=== PATIENT | male | born 1990 | race African-American/Black ===

== ENCOUNTER 2017-01-18 22:10 | Emergency (ER) | payer SELFPAY ==
[2017-01-18] MEDS ORDERED: Ibuprofen 800 MG TAB ONE (22:43)
== END 2017-01-18 22:48 | disposition left against medical advice (07) ==
LOC: ERS 22:10
DX: Z53.21 Procedure and treatment not carried out due to patient leaving prior to being seen by health care provider (principal)

== ENCOUNTER 2017-02-08 02:08 | Emergency (ER) | payer BC, SELFPAY | END 2017-02-08 03:02 | disposition home or self-care (01) | LOC: SCSER 02:08 | DX: K04.4 Acute apical periodontitis of pulpal origin (principal); H66.91 Otitis media, unspecified, right ear; J06.9 Acute upper respiratory infection, unspecified | CPT/HCPCS: 99283 ==

== ENCOUNTER 2017-04-25 20:09 | Emergency (ER) | payer BC, SELFPAY ==
[2017-04-25 20:46] LABS: #Basophils 0.1 thou/uL (0.0-0.2); #Eosinphils 0.4 thou/uL (0.0-0.7); #Lymphocytes 3.2 thou/uL (1.20-3.40); #Monocytes 0.8 thou/uL (0.11-0.59); #Neutrophils 4.2 thou/uL (1.40-6.50); %Basophils 1.2 % (0.0-1.0); %Eosinophils 4.1 % (0.0-10.0); %Lymphocytes 37.1 % (21.0-51.0); %Monocytes 8.9 % (0.0-10.0); %Neutrophils 48.7 % (42.0-75.0); Hemoglobin 15.5 g/dL (14.0-18.0); Mean Corpuscular HGB CONC 33.1 g/dL (32.0-36.0); Mean Corpuscular Hemoglobin 29.8 pg (27.0-31.0); Mean Corpuscular Volume 90.1 fl (80.0-94.0); Mean Platelet Volume 6.3 fL (7.4-10.4); Platelet Count 340 thou/uL (130-400); RBC Distribution Width 12.5 % (11.5-14.5); Red Blood Cell (RBC) Count 5.19 mill/uL (4.70-6.10); White Blood Cell (WBC) Count 8.7 thou/uL (4.8-10.8)
--- NOTE | 2017-04-25 20:48 | RAD ---
CHEST ONE VIEW 04/25/17 HISTORY: Epigastric pain. COMPARISON: None. FINDINGS: Lungs are clear. No pneumothorax or effusion. Cardiac silhouette and mediastinal contours are within normal limits. IMPRESSION: No acute intrathoracic abnormality. POS: [facility]
[2017-04-25 21:20] LABS: ALT (SGPT) 51 U/L (8-55); AST (SGOT) 45 U/L (5-34); Albumin 4.2 g/dL (3.5-5.0); Alkaline Phosphatase 74 U/L (40-150); Anion Gap 14 mmol/L (10-20); BUN (Urea Nitrogen) 9 mg/dL (8.9-20.6); Bilirubin, Total 0.3 mg/dL (0.2-1.2); Calc. Creatinine Clearance 0 mL/min (70-130); Calcium 9.3 mg/dL (7.8-10.44); Carbon Dioxide 25 mmol/L (22-29); Chloride 102 mmol/L (98-107); Estimated GFR-MDRD 90; Globulin 3.7 g/dL (2.4-3.5); Glucose 76 mg/dL (70-105); Lipase 15 U/L (8-78); Potassium 5.1 mmol/L (3.5-5.1); Protein, Total 7.9 g/dL (6.0-8.3); Sodium 136 mmol/L (136-145)
[2017-04-25] MEDS ORDERED: Mag-Al 1200 mg/1200 mg/30 ML UDCUP ONE (21:31)
[2017-04-25] MEDS ORDERED: Pantoprazole 40 MG VIAL ONE (21:31)
[2017-04-25] MEDS ORDERED: Lidocaine Viscous Sol 2% 15 ml UD Cup ONE (21:31)
--- NOTE | 2017-04-29 19:03 | EKG ---
Test Reason : Blood Pressure : / mmHG Vent. Rate : 081 BPM Atrial Rate : 081 BPM P-R Int : 144 ms QRS Dur : 084 ms QT Int : 360 ms P-R-T Axes : 022 -29 015 degrees QTc Int : 418 ms Normal sinus rhythm Normal ECG Confirmed by TATIANNA PAREKH MD ([id number]), news video editor SHERIDAN SUMMERS ([id number]) on 04/29/2017 7:02:29 PM Referred By: Confirmed By:TATIANNA PAREKH MD
== END 2017-04-25 22:28 | disposition home or self-care (01) ==
LOC: ERS 20:09
DX: K21.9 Gastro-esophageal reflux disease without esophagitis (principal); G47.30 Sleep apnea, unspecified; F43.9 Reaction to severe stress, unspecified
CPT/HCPCS: 71045; 80053; 83690; 85025; 93005; 96374; C9113

== ENCOUNTER 2017-12-05 00:58 | Emergency (ER) | payer SELFPAY ==
[2017-12-05] MEDS ORDERED: Ibuprofen 600 MG TAB ONE (01:47)
--- NOTE | 2017-12-05 08:23 | RAD ---
RIGHT SHOULDER RADIOGRAPHS 3 VIEWS: DATE: 12/05/2017. PROVIDED CLINICAL HISTORY: Right shoulder pain without known injury. FINDINGS: There is no evidence for a fracture or other acute osseous abnormality. If there is persistent clini swapna concern, conservative management and followup imaging are advised. IMPRESSION: As above. POS: [facility]
== END 2017-12-05 01:54 | disposition home or self-care (01) ==
LOC: SCSER 00:58
DX: M25.511 Pain in right shoulder (principal); Z79.899 Other long term (current) drug therapy

== ENCOUNTER 2018-05-25 10:13 | Emergency (ER) | payer SELFPAY ==
[2018-05-25] MEDS ORDERED: Ketorolac Tromethamine 30 MG/ML VIAL ONE (11:13)
== END 2018-05-25 11:41 | disposition home or self-care (01) ==
LOC: ERS 10:13
DX: S81.811D Laceration without foreign body, right lower leg, subsequent encounter (principal); Z79.1 Long term (current) use of non-steroidal anti-inflammatories (NSAID); Z79.891 Long term (current) use of opiate analgesic; V89.2XXA Person injured in unspecified motor-vehicle accident, traffic, initial encounter
CPT/HCPCS: 96372; J1885

== ENCOUNTER 2018-06-11 21:55 | Emergency (ER) | payer SELFPAY ==
[2018-06-11] MEDS ORDERED: Bacitracin Zinc 1 Packet ONE (22:28)
== END 2018-06-11 23:05 | disposition home or self-care (01) ==
LOC: ERS 21:55
DX: T81.33XA Disruption of traumatic injury wound repair, initial encounter (principal)
CPT/HCPCS: 99283

== ENCOUNTER 2018-09-19 01:08 | Emergency (ER) | payer SELFPAY ==
[2018-09-19] MEDS ORDERED: Ketorolac Tromethamine 60 MG/2 ML VIAL ONE (01:53)
== END 2018-09-19 02:15 | disposition home or self-care (01) ==
LOC: ERS 01:08
DX: S39.012A Strain of muscle, fascia and tendon of lower back, initial encounter (principal); X58.XXXA Exposure to other specified factors, initial encounter
CPT/HCPCS: 96372; 99283; J1885

== ENCOUNTER 2018-11-13 21:40 | Inpatient (IN) | payer SELFPAY ==
[2018-11-13 22:02] LABS: Bacteria/HPF None Seen HPF (None Seen); Bilirubin Negative (Negative); Blood, Urine Negative (Negative); Clarity Clear (Clear); Glucose, Urine (Dipstick) Normal (Negative); Leukocyte Negative Leu/uL (Negative); Nitrite Negative (Negative); Protein, Urine (Dipstick) 30 mg/dL (Neg-Trace); RBC/HPF 0-3 HPF (0-3); Squamous Epithelial 0-3 HPF (0-3); Urobilinogen Normal mg/dL (Less than 2); WBC/HPF 0-3 HPF (0-3)
[2018-11-13 22:35] LABS: ALT (SGPT) 35 U/L (8-55); AST (SGOT) 27 U/L (5-34); Albumin 4.4 g/dL (3.5-5.0); Alkaline Phosphatase 74 U/L (40-110); Anion Gap 11 mmol/L (10-20); BUN (Urea Nitrogen) 13 mg/dL (8.9-20.6); Bilirubin, Total 0.6 mg/dL (0.2-1.2); Calc. Creatinine Clearance 0 mL/min (70-130); Calcium 9.5 mg/dL (7.8-10.44); Carbon Dioxide 30 mmol/L (22-29); Chloride 100 mmol/L (98-107); Estimated GFR-MDRD 34; Globulin 2.9 g/dL (2.4-3.5); Glucose 103 mg/dL (70-105); Lipase 18 U/L (8-78); Protein, Total 7.3 g/dL (6.0-8.3); Sodium 137 mmol/L (136-145)
[2018-11-13] MEDS ORDERED: Ondansetron ODT 8 MG TAB ONE (22:36)
--- NOTE | 2018-11-14 | CT ---
Exam: Abdomen CT without contrast Pelvic CT without contrast HISTORY: Abdominal pain. COMPARISON: None FINDINGS: Abdomen CT: Lung bases:Clear Heart size: Normal heart size. No pericardial effusion Aorta: Normal caliber. No periaortic fat stranding Solid organs: Limited evaluation due to lack of IV contrast. Grossly no solid organ abnormality Lymph nodes: No gastrohepatic, retrocrural or periportal lymphadenopathy Gallbladder: Unremarkable Mesentery: No mass, lymphadenopathy, free air or free fluid. Nonspecific upper normal right lower nusrat drant mesenteric lymph nodes are noted Kidneys: Bilaterally, no hydronephrosis, nephrolithiasis or perinephric fat stranding. Bilateral uret ers have a normal caliber. No hydroureter, periureteral fat stranding or ureterolithiasis. Alimentary canal: Limited evaluation due to the lack of oral contrast administration. No bowel obstru ction. Unremarkable ileocecal junction. 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 Normal caliber appendix. Unremarkable colon. Occasional diverticulum. No diverticuli tis. CT PELVIS: No mass, adenopathy, free air or free fluid. Urinary bladder: Unremarkable. Osseous structures: No lytic or blastic lesions IMPRESSION: 1. Normal caliber appendix. 2. No evidence of small bowel obstruction. 3. Bilaterally no obstructive uropathy.
[2018-11-14] MEDS ORDERED: Acetaminophen 325 MG TAB PO PRN (00:07)
[2018-11-14] MEDS ORDERED: Ondansetron ODT 4 MG TAB SL PRN (00:07)
[2018-11-14] MEDS ORDERED: Ondansetron PF 4 MG/2 ML Vial IVP PRN ×3 (00:07→10:53)
[2018-11-14] MEDS ORDERED: Morphine 4 MG/ML VIAL SLOW IVP PRN (00:08)
[2018-11-14] MEDS: Lactated Ringer's 1,000 ML IV SCH ×2 (00:10→05:48)
[2018-11-14 00:19] VITALS: BMI 37.6
[2018-11-14] MEDS ORDERED: Melatonin 3 MG TAB PO PRN (01:34)
[2018-11-14] MEDS ORDERED: hydrALAZINE 20 MG/ML VIAL SLOW IVP PRN (10:53)
[2018-11-14] MEDS ORDERED: Ondansetron ODT 4 MG TAB PO PRN ×2 (10:53)
--- NOTE | 2018-11-14 12:14 | HP ---
CHIEF COMPLAINT: Abdominal pain. HISTORY OF PRESENT ILLNESS: Mr. Vo is a very pleasant 28-year-old gentleman, who says that on Monday he started having abdominal pain and nausea. He says it started as a feeling that he was constipated. He says he was having "a little bowel movements off and on, but still felt the urge to go." He says that he took a laxative and began going. Also around the same time, he was having some pain in his lower abdomen, which was bandlike and radiated to the back. He says that this low-grade pain continued, and then on Monday, he said he was trying to eat something and then started vomiting. He denies vomiting any blood, and he says during this time he was having some loose bowel movements. He denies having any fevers or chills. He says that every time he trying to eat, he would get nauseated, and due to this and the low-grade pain, he came to the ER for evaluation. In the ER, they did a CT scan of the abdomen, which was negative. They also did a complete blood cell count, which showed that he had an elevation of his creatinine as well as his BUN. His liver function tests and lipase were negative and he is being admitted for further evaluation. REVIEW OF SYSTEMS: CONSTITUTIONAL: There have been no fevers or chills. No night sweats. No weight loss. HEENT: He has had headaches in the past, which he was recently diagnosed with tension headache and had been prescribed Flexeril. He also says he took a couple of Excedrin, but otherwise no other problems. No sore throat. No rhinorrhea. No neck pain. No adenopathy. PULMONARY: No hemoptysis. No cough. No wheezing. CARDIOVASCULAR: He denies any chest pain. No shortness of breath. No PND. No orthopnea. GASTROINTESTINAL: As the history of present illness. MUSCULOSKELETAL: No muscle pains, weakness, or joint pains. NEUROLOGIC: No focal weakness or numbness. No seizures. PSYCHIATRIC: No symptoms of anxiety or depression. SKIN AND INTEGUMENT: No skin changes. No rash. PAST MEDICAL HISTORY: Significant for tension headache. PAST SURGICAL HISTORY: Negative. ALLERGIES: NO KNOWN DRUG ALLERGIES. SOCIAL HISTORY: He is a nonsmoker. He drinks one glass of wine daily. He denies any drug use. He has 2 children and works for [employer]. FAMILY HISTORY: Significant for renal stones and hypertension on both sides of the family. MEDICATIONS: Include Flexeril p.r.n. PHYSICAL EXAMINATION: GENERAL: He is alert and oriented. He appears to be in no acute distress. He is well developed and well nourished. VITAL SIGNS: Blood pressure is 148/94, heart rate 74, respiratory rate of 18, and temperature is 98.3. HEENT: Pupils are equal, round, and reactive. Extraocular muscles are intact. His sclerae are anicteric. Throat; there is no erythema. No exudates. NECK: No adenopathy. No bruits. LUNGS: Clear to auscultation. There is no wheezing. No rales. No rhonchi. CARDIOVASCULAR: He has a normal S1 and S2. There is no S3 or S4. No murmurs, clicks, or rubs. ABDOMEN: Obese. It is soft. Essentially nontender. There is no rebound. No guarding. No organomegaly. EXTREMITIES: There is no calf tenderness. No joint effusion. NEUROLOGIC: His cranial nerves 2 through 12 are grossly intact. Muscle strength is 5/5. SKIN AND INTEGUMENT: No skin changes. No rash. LABORATORY AND IMAGING DATA: He had a urinalysis, which essentially negative. There was no evidence of any red blood cells in the urine. His chemistry panel; sodium is 137, potassium 4.0, chloride is 100, CO2 is 30, BUN of 13, creatinine of 2.68, and glucose is 103. LFTs were normal as well as lipase, and he had a CT scan of the abdomen, which was essentially negative. ASSESSMENT: This is a pleasant 28-year-old gentleman, who presents to the emergency room, complaining of a low-grade abdominal pain, which has been present for the last couple of days. He has also had some intermittent nausea as well as vomiting. However, his chemistry panel other than having an elevated creatinine is essentially negative. The etiology of his abdominal pain is unclear. 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 Pancreatitis, hepatitis, and gallbladder disease are essentially ruled out with his CT and lab results. It is unlikely he has a kidney stone in that. There is no blood in the urine, and there is no radiographic evidence of this via CT scan. Peptic ulcer disease is a possibility. However, he has not been on any anti-inflammatory and he denies any smoking history. However, we will need to get a CBC to make sure there is no evidence of any anemia. The patient also has an acute kidney injury and this is likely as a result of prerenal azotemia. PLAN: 1. With regard to abdominal pain, again I suspect this is likely either viral or due to a parasite and should likely be self-limiting. We will continue IV hydration, symptom management, and put him on a proton pump inhibitor. Check a CBC and repeat LFTs in the a.m. 2. With regard to acute kidney injury, I suspect this is likely due to prerenal azotemia. We will continue IV fluids and recheck his chemistry panel in the a.m. 3. Tension headache. This can be managed symptomatically. However, we will avoid NSAIDs. 4. Elevated blood pressure. We will treat with p.r.n. antihypertensive medication. He has no known history of hypertension. Job ID: [id number]
[2018-11-14 12:15] LABS: #Eosinphils 0.2 thou/uL (0.0-0.7); #Lymphocytes 1.9 thou/uL (1.20-3.40); #Monocytes 0.9 thou/uL (0.11-0.59); #Neutrophils 5.2 thou/uL (1.40-6.50); %Basophils 0.5 % (0.0-1.0); %Eosinophils 2.3 % (0.0-10.0); %Lymphocytes 23.6 % (21.0-51.0); %Monocytes 10.7 % (0.0-10.0); %Neutrophils 62.9 % (42.0-75.0); Mean Corpuscular HGB CONC 33.6 g/dL (32.0-36.0); Mean Corpuscular Hemoglobin 29.1 pg (27.0-31.0); Mean Corpuscular Volume 86.8 fL (78.0-98.0); Mean Platelet Volume 6.6 fL (7.4-10.4); Platelet Count 275 thou/uL (130-400); RBC Distribution Width 11.9 % (11.5-14.5); White Blood Cell (WBC) Count 8.2 thou/uL (4.8-10.8)
[2018-11-14 12:38] LABS: Anion Gap 10 mmol/L (10-20); BUN (Urea Nitrogen) 13 mg/dL (8.9-20.6); Calc. Creatinine Clearance 64 mL/min (70-130); Calcium 8.9 mg/dL (7.8-10.44); Carbon Dioxide 28 mmol/L (22-29); Chloride 103 mmol/L (98-107); Estimated GFR-MDRD 35; Glucose 115 mg/dL (70-105); Potassium 3.7 mmol/L (3.5-5.1); Sodium 137 mmol/L (136-145)
[2018-11-14] MEDS: Acetaminophen 325 MG TAB PO PRN ×3 (12:39→22:11)
[2018-11-14] MEDS: Sodium Chloride 0.9% 1,000 ML IV SCH ×2 (12:39→22:13)
[2018-11-14] MEDS ORDERED: Ketorolac Tromethamine 15 MG/ML VIAL IVP PRN (22:46)
[2018-11-14] MEDS ORDERED: Ketorolac Tromethamine 30 MG/ML VIAL IVP PRN (22:56)
[2018-11-15] MEDS: Sodium Chloride 0.9% 1,000 ML IV SCH ×4 (05:05→18:38)
[2018-11-15 06:57] LABS: #Basophils 0.1 thou/uL (0.0-0.2); #Eosinphils 0.2 thou/uL (0.0-0.7); #Monocytes 0.9 thou/uL (0.11-0.59); #Neutrophils 3.4 thou/uL (1.40-6.50); %Basophils 0.8 % (0.0-1.0); %Eosinophils 3.8 % (0.0-10.0); %Lymphocytes 29.7 % (21.0-51.0); %Monocytes 13.9 % (0.0-10.0); %Neutrophils 51.9 % (42.0-75.0); Hemoglobin 14.4 g/dL (14.0-18.0); Mean Corpuscular Hemoglobin 30.5 pg (27.0-31.0); Mean Platelet Volume 7.8 fL (7.4-10.4); Platelet Count 238 thou/uL (130-400); Red Blood Cell (RBC) Count 4.71 mill/uL (4.70-6.10); White Blood Cell (WBC) Count 6.6 thou/uL (4.8-10.8)
[2018-11-15 07:08] LABS: ALT (SGPT) 29 U/L (8-55); AST (SGOT) 23 U/L (5-34); Albumin 3.6 g/dL (3.5-5.0); Alkaline Phosphatase 68 U/L (40-110); Anion Gap 10 mmol/L (10-20); BUN (Urea Nitrogen) 14 mg/dL (8.9-20.6); Bilirubin, Total 0.6 mg/dL (0.2-1.2); Calc. Creatinine Clearance 67 mL/min (70-130); Calcium 8.5 mg/dL (7.8-10.44); Carbon Dioxide 28 mmol/L (22-29); Chloride 106 mmol/L (98-107); Estimated GFR-MDRD 37; Globulin 2.8 g/dL (2.4-3.5); Glucose 101 mg/dL (70-105); Potassium 4.1 mmol/L (3.5-5.1); Protein, Total 6.4 g/dL (6.0-8.3); Sodium 140 mmol/L (136-145)
[2018-11-15] MEDS: Amlodipine 5 MG TAB PO SCH (09:03)
--- NOTE | 2018-11-15 10:00 | PRG ---
DATE OF SERVICE: 11/15/2018 SUBJECTIVE: The patient is seen and examined at bedside. He is feeling better. He does not have any abdominal pain, nausea, or vomiting. This morning, he tolerates his clear liquids without any problems. OBJECTIVE: VITAL SIGNS: Blood pressure is 172/99, pulse is 66, respiratory rate is 16, O2 saturation is 98% on room air, and temperature is 98.1. HEENT: His head is atraumatic and normocephalic. Eyes are PERRLA. Sclerae are nonicteric. Oral mucosa is moist. NECK: Supple. LUNGS: Clear. HEART: S1-S2 normal. ABDOMEN: Soft and nontender. Bowel sounds are present. No organomegaly. EXTREMITIES: No clubbing, cyanosis, or edema. NEUROLOGIC: He is alert and oriented x4. There is no any motor or sensory deficits present. Cranial nerves are intact. LABORATORY DATA: Labs showed white count of 6.6, hemoglobin 14.4, hematocrit 41.0, and platelet count 238,000. Electrolytes within normal limits. Creatinine 2.51 and glucose 101. The rest of chemistry is within normal limits. IMPRESSION: 1. Abdominal pain with nausea and vomiting, subsided, most likely viral infection related. We will advance his diet as tolerated. 2. Renal failure, most likely acute on chronic. We will continue IV fluids. We will get urine creatinine and electrolytes. He has some protein in urine, and we will do 24-hour urine collection for protein. 3. Hypertension. We will start him on amlodipine 5 mg daily. Get his blood pressure under control. Thus, it is most likely cause of his renal failure. He will have to have followup appointment with a physician liaison. Also, we will obtain renal ultrasound. Job ID: [id number]
--- NOTE | 2018-11-15 12:51 | ULT ---
RENAL ULTRASOUND: HISTORY: Renal failure. TECHNIQUE: Real-time imaging of the right and left kidneys was performed. FINDINGS: The kidneys are normal in size with the right kidney measuring 10.1 and the left kidney 10.2 cm. The cortex is well preserved. There is slight increased echogenicity to the renal cortex of both kidneys. No obstruction, cyst or mass. The bladder region appears unremarkable. IMPRESSION: Essentially unremarkable renal ultrasound. There does appear to be some mild increased echogenicity t o both kidneys which would suggest underlying medical renal parenchymal disease. POS: [facility]
[2018-11-15 13:44] LABS: Potassium, Urine Less than 10.0 mmol/L; Sodium, Urine 84 mmol/L (Not Available)
[2018-11-16] MEDS: Sodium Chloride 0.9% 1,000 ML IV SCH (05:01)
[2018-11-16] MEDS: Amlodipine 5 MG TAB PO SCH (07:54)
[2018-11-16 09:36] LABS: Anion Gap 14 mmol/L (10-20); BUN (Urea Nitrogen) 13 mg/dL (8.9-20.6); Calc. Creatinine Clearance 75 mL/min (70-130); Calcium 9.4 mg/dL (7.8-10.44); Carbon Dioxide 26 mmol/L (22-29); Chloride 105 mmol/L (98-107); Estimated GFR-MDRD 42; Glucose 86 mg/dL (70-105); Sodium 141 mmol/L (136-145)
[2018-11-16 13:06] LABS: Urine Total Volume 4250 mL (800-1800)
[2018-11-16 13:39] LABS: Creatinine, Urine 36.4 mg/dL (63-166)
[2018-11-16 13:42] LABS: Protein, Urine Less than 10 mg/dL (1-14)
[2018-11-16 15:28] VITALS: BP 150/98; TEMP 98
--- NOTE | 2018-11-17 05:38 | DIS ---
DATE OF ADMISSION: 11/14/2018 DATE OF DISCHARGE: 11/16/2018 DIAGNOSES AT THE TIME OF DISCHARGE: 1. Acute, most likely on chronic kidney failure stage 2/3. 2. Hypertension, uncontrolled, improved. 3. Acute gastroenteritis. HOSPITAL COURSE: The patient is a 28-year-old male, who was admitted to the hospital with abdominal pain and nausea. He had some constipation, on and off nausea and vomiting. The pain was in the lower abdomen, was bandlike and has radiated to the back. He denied any blood in his vomitus. He denied any fever or chills. In the emergency room, he had some low-grade pain and the CT scan of the abdomen was done and it was negative. His complete blood count showed elevation of his creatinine and BUN at the time of emergency room visit. His chemistry shows sodium of 137, potassium 4.0, chloride 100, CO2 30, BUN 13, creatinine 2.68. LFTs were normal. Lipase was normal and he got admitted to the hospital for further evaluation. He was given IV fluids and antiemetics. This was most likely gastroenteritis. The patient's symptoms subsided and he was able to tolerate food without any problems on the next day. His kidney function improved with IV fluids and creatinine went down from 2.63 to 2.24. Since his urinalysis showed 30 of proteins, he had 24 hour urine collection for protein content. His urine spot showed 84 of sodium and less than 10 of potassium, but total protein was not performed secondary to 24 hour calculation invalid due to linearity limits. His blood pressure was elevated during this hospitalization. Maximal blood pressure was up to 172/99. He was started on amlodipine and his blood pressure is down to 158/96 on 5 mg of amlodipine daily. Clinically, he is doing fine. He is able to tolerate food. His blood pressure is as mentioned above. Temperature is 97.8, pulse is 70, respiratory rate is 18, and O2 saturation is 99. His urinalysis did not show any problems with infection. He was discharged home with recommendation to stay on amlodipine 10 mg once daily and he will follow up with his primary care physician he is going to get established with in the next week. He will have BMP done at the time of followup. His ultrasound showed some medical kidney disease, so most likely this is [id number] and he will have to be referred to a reliner. The patient is discharged in good condition and the time spent on this discharge is less than 30 minutes. Job ID: [id number]
== END 2018-11-16 15:22 | disposition home or self-care (01) | DRG 392 ==
LOC: ERS 21:40 → SURG B 11-14 00:03 → T4-A 11-14 21:43
PROVIDERS: ADMIT Hospitalist; ATTEND Hospitalist
DX: K52.9 Noninfective gastroenteritis and colitis, unspecified (principal); N17.9 Acute kidney failure, unspecified; I12.9 Hypertensive chronic kidney disease with stage 1 through stage 4 chronic kidney disease, or unspecified chronic kidney disease; N18.9 Chronic kidney disease, unspecified; G44.209 Tension-type headache, unspecified, not intractable
CPT/HCPCS: 36415; 74176; 76770; 80048; 80053; 81003; 81015; 82436; 82570; 83690; 84133; 84156; 84300; 85025; 96360; 96372; J0360; J0500; J2270; J2405

== ENCOUNTER 2019-08-20 22:00 | Emergency (ER) | payer BC ==
[2019-08-20 22:27] LABS: Hemoglobin 15.3 g/dL (14.0-18.0); Mean Corpuscular HGB CONC 33.7 g/dL (32.0-36.0); Mean Corpuscular Hemoglobin 29.9 pg (27.0-31.0); Mean Corpuscular Volume 88.7 fL (78.0-98.0); Mean Platelet Volume 6.6 fL (7.4-10.4); Platelet Count 292 thou/uL (130-400); RBC Distribution Width 12.3 % (11.5-14.5); Red Blood Cell (RBC) Count 5.12 mill/uL (4.70-6.10); White Blood Cell (WBC) Count 7.3 thou/uL (4.8-10.8)
[2019-08-20 22:49] LABS: ALT (SGPT) 76 U/L (8-55); AST (SGOT) 64 U/L (5-34); Albumin 4.2 g/dL (3.5-5.0); Alkaline Phosphatase 76 U/L (40-110); Anion Gap 11 mmol/L (10-20); BUN (Urea Nitrogen) 11 mg/dL (8.9-20.6); Bilirubin, Total 0.4 mg/dL (0.2-1.2); Calc. Creatinine Clearance 0 mL/min (70-130); Calcium 9.3 mg/dL (7.8-10.44); Carbon Dioxide 29 mmol/L (22-29); Chloride 98 mmol/L (98-107); Estimated GFR-MDRD 68; Globulin 3.2 g/dL (2.4-3.5); Glucose 108 mg/dL (70-105); Lipase 14 U/L (8-78); Potassium 3.4 mmol/L (3.5-5.1); Protein, Total 7.4 g/dL (6.0-8.3); Sodium 135 mmol/L (136-145)
[2019-08-20] MEDS ORDERED: Mag-Al 1200 mg/1200 mg/30 ML UDCUP ONE (22:53)
[2019-08-20] MEDS ORDERED: Lidocaine Viscous Sol 2% 15 ml UD Cup ONE (22:53)
[2019-08-20] MEDS ORDERED: Ondansetron ODT 4 MG TAB ONE (22:53)
[2019-08-20 23:00] LABS: Band 1 % (5-11); Eosinophils 1 % (0-10); Lymphocytes 8 % (21-51); MDiff Complete? YES; Monocytes 14 % (0-10); Neutrophil 76 % (42-75); Platelet Morphology Comment Appears Adequate; RBC Morphology Normal
[2019-08-20 23:19] LABS: Bilirubin Negative (Negative); Blood, Urine Negative (Negative); Clarity Clear (Clear); Glucose, Urine (Dipstick) Normal (Negative); Leukocyte Negative Leu/uL (Negative); Nitrite Negative (Negative); Protein, Urine (Dipstick) Negative (Neg-Trace); Urobilinogen 3 mg/dL (Less than 2)
--- NOTE | 2019-08-21 07:55 | ULT ---
PRELIMINARY REPORT/[facility]/EMERGENCY AFTER HOUS PROCEDURE: EXAM: US Abdomen Limited, Right Upper Quadrant. CLINICAL HISTORY: Epigastric pain, diarrhea TECHNIQUE: Real-time ultrasound of the right upper quadrant with image documentation. COMPARISON: None provided. FINDINGS: LIVER: Measures 15.1 cm and demonstrates fatty infiltration GALLBLADDER: No gallstone. No wall thickening. No pericholecystic fluid. COMMON BILE DUCT: No dilation. Measures 2.6 mm PANCREAS: Partially obscured by overlying bowel gas. RIGHT KIDNEY: Unremarkable. No hydronephrosis. Measures 9.7 cm IMPRESSION: Fatty infiltration of the liver with no acute process ELECTRONICALLY SIGNED BY: Martin Joy MD Aug 21, 2019 12:17:33 AM CDT FINAL REPORT EMERGENT AFTER HOURS RIGHT UPPER QUADRANT ULTRASOUND: HISTORY: Epigastric abdominal pain for one day with diarrhea. COMPARISON: None. IMPRESSION: 1. Mild fatty infiltration of the liver. 2. Gallbladder is decompressed which limits adequate evaluation. No definite gallbladder calculus is seen, and there is no pericholecystic fluid identified. Common duct is normal in caliber measuring 0.3 cm in diameter. 3. Findings are in agreement with preliminary report by [facility]. Transcribed Date/Time: 08/21/2019 8:00 AM
== END 2019-08-21 00:59 | disposition home or self-care (01) ==
LOC: ERS 22:00
DX: R10.13 Epigastric pain (principal); I10 Essential (primary) hypertension; Z79.899 Other long term (current) drug therapy
CPT/HCPCS: 36415; 76705; 80053; 81003; 83690; 85025; 93005; 96360; Q0162